=== PATIENT | male | born 1950 | race Caucasian/White ===

== ENCOUNTER 2020-10-21 11:56 | Day surgery (SDC) | payer MEDICARE, BC ==
[~2020-10-21 11:56] MED LIST: Acetaminophen 500 MG TAB ONE; diphenhydrAMINE 50 MG/ML VIAL ONE
== END 2020-10-21 13:20 | disposition home or self-care (01) ==
LOC: CSHSDC/OP 11:56
PROVIDERS: ATTEND Family Medicine
DX: Z23 Encounter for immunization (principal); U07.1 COVID-19
CPT/HCPCS: M0243; Q0243; J1200; J7050

== ENCOUNTER 2022-05-28 15:03 | Outpatient (CLI) | payer MEDICARE, BC | END 2022-05-28 15:04 | disposition home or self-care (01) | LOC: CSHCT 15:03 | PROVIDERS: ATTEND Surgery | DX: M54.16 Radiculopathy, lumbar region (principal); Z98.1 Arthrodesis status; M47.816 Spondylosis without myelopathy or radiculopathy, lumbar region; M25.78 Osteophyte, vertebrae; M51.26 Other intervertebral disc displacement, lumbar region; M48.061 Spinal stenosis, lumbar region without neurogenic claudication; Z98.890 Other specified postprocedural states | CPT/HCPCS: 72120; 72131; 72148 ==